=== PATIENT | female | born 1975 | race Caucasian/White ===

== ENCOUNTER 2018-06-29 16:02 | Emergency (ER) | payer SELFPAY ==
[2018-06-29 18:04] LABS: Urine Bacteria <20 /HPF (<20); Urine RBC 20-50 /HPF (NONE SEEN)
[2018-06-29 18:05] LABS: Urine Amorphous Sediment 1+ /HPF (NONE SEEN); Urine Culture Reflex Order NOT NEEDED
[2018-06-29 18:05] LABS: Urine Blood 2+ (NEG); Urine Glucose NEGATIVE (NEG); Urine Protein NEGATIVE (NEG); Urine Specific Gravity 1.015 (1.005-1.030); Urine pH 6.5 (5.0-7.0)
--- NOTE | 2018-06-29 18:37 | EDPHYS ---
Physician Documentation [facility] Name: Aurea Ba Age: 42 yrs Sex: Female : 1975 Arrival Date: 06/29/2018 Time: 16:06 Bed 11 Private MD: Jermain Sibley R ED Physician Matt Soto HPI: 06/29 17:10 This 42 yrs old Female presents to ER via Ambulatory with complaints of Flu snw Symptoms, Urinary Problem. 17:10 Onset: The symptoms/episode began/occurred 3 week(s) ago, and became persistent. snw Associated signs and symptoms: Pertinent positives: congestion, cough, earache, fever, nasal discharge, sore throat. Modifying factors: The patient symptoms are alleviated by nothing. It is unknown whether or not the patient has had similar symptoms in the past. The patient has not recently seen a physician, and does not have an established primary care provider. 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 - Social history:: Smoking status: Patient uses tobacco products, smokes one-half pack cigarettes per day. - Ebola Screening: : Patient denies exposure to infectious person Patient denies travel to an Ebola-affected area in the 21 days before illness onset. ROS: 17:09 Eyes: Negative for injury, pain, redness, and discharge, ENT: Negative for injury and snw discharge, + ear pain/congestion Neck: Negative for injury, pain, and swelling, Cardiovascular: Negative for chest pain, palpitations, and edema. 17:09 MS/Extremity: Negative for injury and deformity, Skin: Negative for injury, rash, and discoloration, Neuro: Negative for headache, weakness, numbness, tingling, and seizure. 17:09 Constitutional: Positive for fatigue, fever, malaise, poor PO intake, off and on over 2-3 weeks. 17:09 Respiratory: Positive for cough, with no reported sputum. 17:09 Abdomen/GI: Positive for abdominal cramps. 17:09 Back: Positive for pain with movement, of the low back area. 17:09 : Positive for urinary symptoms. Exam: 17:06 Head/Face: Normocephalic, atraumatic. Eyes: Pupils equal round and reactive to light, snw extra-ocular motions intact. Lids and lashes normal. Conjunctiva and sclera are non-icteric and not injected. Cornea within normal limits. Periorbital areas with no swelling, redness, or edema. ENT: Nares patent. No nasal discharge, no septal abnormalities noted. Tympanic membranes are normal and external auditory canals are clear. Oropharynx with no redness, swelling, or masses, exudates, or evidence of obstruction, uvula midline. Mucous membranes moist. Neck: Trachea midline, no thyromegaly or masses palpated, and no cervical lymphadenopathy. Supple, full range of motion without nuchal rigidity, or vertebral point tenderness. No Meningismus. Chest/axilla: Normal chest wall appearance and motion. Nontender with no deformity. No lesions are appreciated. 17:06 Respiratory: Lungs have equal breath sounds bilaterally, clear to auscultation and percussion. No rales, rhonchi or wheezes noted. No increased work of breathing, no retractions or nasal flaring. Abdomen/GI: Soft, non-tender, with normal bowel sounds. No distension or tympany. No guarding or rebound. No evidence of tenderness throughout. Back: No spinal tenderness. No costovertebral tenderness. Full range of motion. Skin: Warm, dry with normal turgor. Normal color with no rashes, no lesions, and no evidence of cellulitis. MS/ Extremity: Pulses equal, no cyanosis. Neurovascular intact. Full, normal range of motion. Neuro: Awake and alert, GCS 15, oriented to person, place, time, and situation. Cranial nerves II-XII grossly intact. Motor strength 5/5 in all extremities. Sensory grossly intact. Cerebellar exam normal. Normal gait. 17:06 Constitutional: The patient appears alert, awake, anxious, uncomfortable. 17:06 Cardiovascular: Rate: tachycardic, Heart sounds: normal. Vital Signs: 16:47 BP 119 / 87; Pulse 105; Resp 18; Temp 99.6; Pulse Ox 98% on R/A; Weight 76.2 kg; Height ph 5 ft. 2 in. (157.48 cm); 16:47 Body Mass Index 30.73 (76.20 kg, 157.48 cm) ph MDM: 16:52 Patient medically screened. snw 18:39 Data reviewed: vital signs, nurses notes. Data interpreted: Pulse oximetry: on room air snw is 98 %. Interpretation: normal. Counseling: I had a detailed discussion with the patient and/or guardian regarding: the historical points, exam findings, and any diagnostic results supporting the discharge/admit diagnosis, the presence of at least one elevated blood pressure reading (>120/80) during this emergency department visit, lab results, the need for outpatient follow up, to return to the emergency department if symptoms worsen or persist or if there are any questions or concerns that arise at home. Special discussion: Based on the patient's Hx, exam, and Dx evaluation, there is no indication for emergent surgery or inpatient Tx. It is understood by the patient/guardian that if the Sx's persist or worsen they need to return immediately for re-evaluation. Based on the history and exam findings, there is no indication for further emergent testing or inpatient evaluation. I discussed with the patient/guardian the need to see the primary care provider for further evaluation of the symptoms. 06/29 16:09 Order name: Urine Culture snw 06/29 16:09 Order name: Urine Microscopic Only snw 06/29 16:09 Order name: Flu snw 06/29 18:02 Order name: Urine Dipstick--Ancillary (enter results) em 06/29 18:02 Order name: Urine --Ancillary (enter results) [facility] 06/29 18:06 Order name: Urine Microscopic Only; Complete Time: 18:07 EDMS 06/29 16:09 Order name: Urine Dipstick-Ancillary (obtain specimen); Complete Time: 17:47 snw 06/29 18:06 Order name: Urine --Ancillary; Complete Time: 18:07 EDMS 06/29 18:06 Order name: Urine Dipstick-Ancillary; Complete Time: 18:07 EDMS 06/29 18:30 Order name: Influenza Screen (A ; Complete Time: 18:35 EDMS Administered Medications: 18:53 Drug: Augmentin 875 mg Route: PO; ss 18:55 Follow up: Response: Medication administered at discharge. Disposition: 06/29/18 18:36 Discharged to Home. Impression: Acute sinusitis. - Condition is Stable. - Discharge Instructions: Dysuria, Sinusitis, Adult. - Prescriptions for Augmentin 875- 125 mg Oral Tablet - take 1 tablet by ORAL route every 12 hours for 10 days; 20 tablet. Zyrtec 10 mg Oral Tablet - take 1 tablet by ORAL route once daily As needed; 20 tablet. - Work release form, Medication Reconciliation Form, Thank You Letter, Antibiotic Education, Prescription Opioid Use form. - Follow up: Jermain Sibley MD; When: 2 - 3 days; Reason: Recheck today's complaints, Continuance of care, Re-evaluation by your physician. Follow up: Emergency Department; When: As needed; Reason: Worsening of condition. Addendum: 07/01/2018 09:16 Co-signature as Attending Physician, Matt Soto MD I agree with the assessment and k dr plan of care. Signatures: Dispatcher [employer] EDMS Matt Soto MD MD [facility] Annetta Hodges, MANAGER TALENT-C MANAGER TALENT-Csnw June Guy RN RN ss Julianne Marsh RN RN ph Corrections: (The following items were deleted from the chart) 06/29 18:39 18:39 Medical screen evaluation completed. EMTALA emergency medical condition absent. snw snw 18:39 18:39 Medical screen evaluation completed. EMTALA emergency medical condition absent. snw snw 19:00 18:36 06/29/2018 18:36 Discharged to Home. Impression: Acute sinusitis. Condition is ss Stable. Forms are Medication Reconciliation Form, Thank You Letter, Antibiotic Education, Prescription Opioid Use. Follow up: Jermain Sibley; When: 2 - 3 days; Reason: Recheck today's complaints, Continuance of care, Re-evaluation by your physician. Follow up: Emergency Department; When: As needed; Reason: Worsening of condition. snw
--- NOTE | 2018-06-29 18:37 | ER ---
Nurse's Notes [facility] Name: Aurea Ba Age: 42 yrs Sex: Female : 1975 Arrival Date: 06/29/2018 Time: 16:06 Bed 11 Private MD: Jermain Sibley R Diagnosis: Acute sinusitis Presentation: 06/29 16:48 Presenting complaint: Patient states: Body aches, fever, cough, ear pain, joint pain, ph low back pain, urinary frequency x " a few days". Transition of care: patient was not received from another setting of care. Onset of symptoms was June 29, 2018. Risk Assessment: Do you want to hurt yourself or someone else? Patient reports no desire to harm self or others. Care prior to arrival: None. 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 - Social history:: Smoking status: Patient uses tobacco products, smokes one-half pack cigarettes per day. - Ebola Screening: : Patient denies exposure to infectious person Patient denies travel to an Ebola-affected area in the 21 days before illness onset. Screenin:50 Abuse screen: Denies threats or abuse. Denies injuries from another. Nutritional ss screening: No deficits noted. Tuberculosis screening: No symptoms or risk factors identified. Never had TB. Fall Risk None identified. Assessment: 18:00 General: Appears in no apparent distress. comfortable, Behavior is calm, cooperative. ss Pain: Complains of pain in low back area. Neuro: Level of Consciousness is awake, alert, obeys commands, Oriented to person, place, time, situation. Cardiovascular: Capillary refill < 3 seconds is brisk in bilateral fingers. Respiratory: Reports cough that is x " a few days" Respiratory effort is even, unlabored. GI: Patient currently denies diarrhea, nausea, vomiting. Derm: Skin is intact, is healthy with good turgor, Skin is pink, warm \\T\\ dry. normal. Vital Signs: 16:47 BP 119 / 87; Pulse 105; Resp 18; Temp 99.6; Pulse Ox 98% on R/A; Weight 76.2 kg; Height ph 5 ft. 2 in. (157.48 cm); 16:47 Body Mass Index 30.73 (76.20 kg, 157.48 cm) ED Course: 16:06 Patient arrived in ED. sb2 16:07 Jermain Sibley MD is Private Physician. sb2 16:08 [facility] Hod[facility] snw 16:08 Matt Soto MD is Attending Physician. snw 16:48 Arm band placed on. ph 16:49 Triage completed. ph 16:50 Patient has correct armband on for positive identification. Bed in low position. ss 17:47 Flu Sent. ss 18:36 Jermain Sibley MD is Referral Physician. snw 18:49 June Guy, HERBER is Primary Nurse. ss 18:59 No provider procedures requiring assistance completed. Patient did not have IV access ss during this emergency room visit. Administered Medications: 18:53 Drug: Augmentin 875 mg Route: PO; ss 18:55 Follow up: Response: Medication administered at discharge. ss Outcome: 18:36 Discharge ordered by . snw 18:59 Discharged to home ambulatory. ss 18:59 Condition: good 18:59 Discharge instructions given to patient, family, Instructed on discharge instructions, follow up and referral plans. medication usage, Demonstrated understanding of instructions, follow-up care, medications, Prescriptions given X 2. 19:00 Patient left the ED. ss Signatures: Annetta Hodges FNP-C SCREEN AND CYCLONE REPAIRER-Csnw June Guy, RN RN Julianne Marsh RN RN Lesia Nagy sb2
[2018-06-29] MEDS ORDERED: AMOX/K CLAV 875 MG TAB ONE (18:58)
== END 2018-06-29 19:00 | disposition home or self-care (01) ==
LOC: ER 16:02
DX: J01.90 Acute sinusitis, unspecified (principal); I10 Essential (primary) hypertension; F17.210 Nicotine dependence, cigarettes, uncomplicated; Z88.5 Allergy status to narcotic agent
CPT/HCPCS: 81003; 81015; 81025; 87086; 87088; 87804; 99283

== ENCOUNTER 2019-10-07 10:18 | Emergency (ER) | payer BC ==
[2019-10-07] MEDS ORDERED: METHYLPREDNISOLONE 125 MG INJ ONE (11:34)
[2019-10-07] MEDS ORDERED: AZITHROMYCIN 250 MG TAB ONE (11:34)
[2019-10-07 11:35] LABS: Protime INR 0.94
[2019-10-07] MEDS ORDERED: NA CHLORIDE 0.9% 1,000 ML ONE (11:35)
[2019-10-07] MEDS ORDERED: CEFTRIAXONE/SWI 1gm 1 GM/10 ML SYR ONE (11:35)
[2019-10-07] MEDS ORDERED: LEVALBUTEROL 1.25 MG/3 ML NEB ONE (11:35)
[2019-10-07] MEDS ORDERED: IPRATROPIUM BROM 0.5MG/2.5ML ONE (11:35)
[2019-10-07 11:36] LABS: Urine Blood 2+ (NEG); Urine Glucose NEGATIVE (NEG); Urine Protein NEGATIVE (NEG); Urine pH 6.5 (5.0-7.0)
[2019-10-07 11:44] LABS: Absolute Lymphocytes (CBC) 1.4 K/uL (0.7-4.9); Basophils % 0.8 % (0-1.3); Hematocrit 40.9 % (36.0-45.0); Lymphocytes % 20.3 % (15.3-44.8); MPV 8.4 fL (7.6-11.3); RBC Red Blood Cell Count 4.28 M/uL (3.86-4.86)
[2019-10-07 11:47] LABS: ALT/SGPT 16 U/L (12-78); AST/SGOT 15 U/L (15-37); Albumin 3.8 g/dL (3.4-5.0); Alkaline Phosphatase 73 U/L (45-117); BUN Blood Urea Nitrogen 10 mg/dL (7-18); Bicarbonate 28 mmol/L (21-32); Bilirubin Direct < 0.1 mg/dL (0-0.2); Bilirubin Total 0.2 mg/dL (0.2-1.0); Glucose Level 91 mg/dL (74-106); NT PRO-BNP 295 pg/mL (<125); Potassium 4.1 mmol/L (3.5-5.1); Protein, Total 7.5 g/dL (6.4-8.2); Sodium Level 138 mmol/L (136-145); Troponin (Emerg Dept Use Only) < 0.02 ng/mL (0.0-0.045)
--- NOTE | 2019-10-07 12:18 | RAD REPORT ---
EXAM DESCRIPTION: Farooq Martin (2 Views)10/07/2019 12:06 pm CLINICAL HISTORY: Cough COMPARISON: 2016 FINDINGS: The lungs appear clear of acute infiltrate. The heart is normal size IMPRESSION: No acute abnormalities displayed
--- NOTE | 2019-10-07 12:32 | ER ---
Nurse's Notes [facility] Name: Aurea Ba Age: 43 yrs Sex: Female : 1975 Arrival Date: 10/07/2019 Time: 10:30 Bed 7 Private MD: Diagnosis: Influenza due to identified novel influenza A virus;Tobacco abuse counseling;Tobacco use;Bronchitis, not specified as acute or chronic;Other chest pain Presentation: 10/06 10:36 Chief complaint: Patient states: cough, congestion and body aches that began 6 days ss ago. Denies fever. Coronavirus screen: The patient has NOT traveled to a country currently being monitored by the [facility] within the last 14 days. Proceed with normal triage procedures. Ebola Screen: Patient denies exposure to infectious person. Patient denies travel to an Ebola-affected area in the 21 days before illness onset. Initial Sepsis Screen: Does the patient meet any 2 criteria? No. Patient's initial sepsis screen is negative. Does the patient have a suspected source of infection? No. Patient's initial sepsis screen is negative. Risk Assessment: Do you want to hurt yourself or someone else? Patient reports no desire to harm self or others. 10:36 Method Of Arrival: Ambulatory ss 10:36 Acuity: ADA 4 ss Historical: - Allergies: 10:38 Morphine; ss - PMHx: 10:38 Anxiety; Depression; Hypertension; ss - PSHx: 10:38 R shoulder; ACL Right; ss - Immunization history:: Adult Immunizations up to date. - Social history:: Smoking status: Patient denies any tobacco usage or history of. - Family history:: not pertinent. Screenin:18 Abuse screen: Denies threats or abuse. Nutritional screening: No deficits noted. em Tuberculosis screening: No symptoms or risk factors identified. Fall Risk None identified. Assessment: 11:30 General: Appears in no apparent distress. comfortable, Behavior is calm, cooperative, em Denies fever. Pain: Complains of pain in chest Pain does not radiate. Quality of pain is described as tight Pain began 6 days ago. Neuro: Level of Consciousness is awake, alert, obeys commands, Oriented to person, place, time, situation, Appropriate for age. Cardiovascular: Capillary refill < 3 seconds Patient's skin is warm and dry. Rhythm is sinus rhythm. Respiratory: Airway is patent Respiratory effort is even, unlabored, Respiratory pattern is regular, symmetrical, Breath sounds are diminished bilaterally. GI: Reports nausea, Patient currently denies vomiting. Derm: Skin is intact, is healthy with good turgor, Skin is pink, warm \T\ dry. Musculoskeletal: Capillary refill < 3 seconds, Range of motion: intact in all extremities. 11:53 Reassessment: Patient appears in no apparent distress at this time. wheeled to x-ray em dept. 13:00 Reassessment: Patient appears in no apparent distress at this time. Patient and/or em family updated on plan of care and expected duration. Pain level reassessed. Patient is alert, oriented x 3, equal unlabored respirations, skin warm/dry/pink. pending completion of IV ABX before being discharged. 13:43 Reassessment: Patient appears in no apparent distress at this time. Patient and/or em family updated on plan of care and expected duration. Pain level reassessed. Patient is alert, oriented x 3, equal unlabored respirations, skin warm/dry/pink. crackers and juice given. 15:06 Reassessment: Patient appears in no apparent distress at this time. Patient and/or em family updated on plan of care and expected duration. Pain level reassessed. Patient is alert, oriented x 3, equal unlabored respirations, skin warm/dry/pink. Vital Signs: 10:36 BP 144 / 110; Pulse 83; Resp 16; Temp 97.8(TE); Pulse Ox 99% on R/A; Weight 76.2 kg; Height 5 ft. 2 in. (157.48 cm); Pain 2/10; 11:12 BP 137 / 94; Pulse 69; sv 12:28 BP 150 / 90; Pulse 78; Resp 20 S; Pulse Ox 99% on Nebulizer Mask; em 14:00 BP 140 / 79; Pulse 74; Resp 18 S; Pulse Ox 99% on R/A; em 10:36 Body Mass Index 30.73 (76.20 kg, 157.48 cm) ED Course: 10:30 Patient arrived in ED. rg4 10:31 Demian Hussein RN is Primary Nurse. em 10:32 Denilson Mahmood MD is Attending Physician. alfred 10:37 Triage completed. ss 10:38 Arm band placed on right wrist. ss 10:50 Initial lab(s) drawn, by me, sent to lab. First set of blood cultures drawn by me. ms Inserted saline lock: 20 gauge in right antecubital area, using aseptic technique. Blood collected. 11:25 Second set of blood cultures drawn by me. ms 11:30 Patient has correct armband on for positive identification. Placed in gown. Bed in low em position. Call light in reach. Side rails up X2. awake overnight monitor on. Pulse ox on. NIBP on. 11:30 Patient maintains SpO2 saturation greater than 95% on room air. em 12:05 Chest Pa And Lat (2 Views) XRAY In Process Unspecified. EDMS 15:06 No provider procedures requiring assistance completed. IV discontinued, intact, em bleeding controlled, No redness/swelling at site. Pressure dressing applied. Administered Medications: 11:34 Drug: Xopenex 3.75 mg Route: Inhalation; em 15:05 Follow up: Response: No adverse reaction; Marked relief of symptoms em 11:34 Drug: AtroVENT Aerosol 0.5 mg Route: Inhalation; em 15:05 Follow up: Response: No adverse reaction; Marked relief of symptoms em 11:35 Drug: NS 0.9% 1000 ml Route: IV; Rate: 1 bolus; Site: right antecubital; em 15:08 Follow up: IV Status: Completed infusion em 11:38 Drug: SOLU-Medrol 125 mg Route: IVP; Site: right antecubital; em 15:05 Follow up: Response: No adverse reaction em 12:28 Drug: Rocephin 1 grams Route: IV; Rate: per protocol; Site: right antecubital; em 15:05 Follow up: Response: No adverse reaction; IV Status: Completed infusion; IV Intake: 10mlem 13:18 Drug: Zithromax 500 mg Route: IVPB; Infused Over: 1 hrs; Site: right antecubital; sv 15:05 Follow up: IV Status: Completed infusion; IV Intake: 500ml em 14:55 Not Given (Patient Refused): Tamiflu 75 mg PO once em 14:55 Not Given (Patient Refused): predniSONE 20 mg PO once em 14:55 Not Given (Patient Refused): Aspirin 162 mg PO once em Intake: 15:05 IV: 500ml; Total: 500ml. em 15:05 IV: 10ml; Total: 510ml. em Outcome: 12:30 Discharge ordered by . alfred 15:06 Discharged to home ambulatory. em 15:06 Condition: good 15:06 Discharge instructions given to patient, Instructed on discharge instructions, follow up and referral plans. medication usage, Demonstrated understanding of instructions, follow-up care, medications, Prescriptions given X 4. 15:08 Patient left the ED. em Signatures: Dispatcher [employer] Peyton Broderick RN RN sv Anderson, Corey, MD MD cha Munoz, Edgar, RN RN em Villarreal, Maria ms Smirch, Shelby, RN RN ss Garcia, Rubi rg4
--- NOTE | 2019-10-07 12:33 | EDPHYS ---
Physician Documentation [facility] Name: Aurea Ba Age: 43 yrs Sex: Female : 1975 Arrival Date: 10/07/2019 Time: 10:30 Bed 7 Private MD: ROXANN Physician Denilson Mahmood HPI: 10/06 11:12 This 43 yrs old Female presents to ER via Ambulatory with complaints of Chest alfred Tightness, Cough. 11:12 The patient or guardian reports chest pain that is located primarily in the anterior [facility] chest wall. Onset: 6 day(s) ago. The pain does not radiate. 11:22 Onset: The symptoms/episode began/occurred 6 day(s) ago. Duration: The symptoms are alfred continuous, and are steadily getting worse. The patient's shortness of breath is aggravated by coughing, talking, walking. The patient or guardian reports difficulty breathing, flu symptoms, arthralgias, low-grade fever, myalgias. Modifying factors: The symptoms are alleviated by nothing. the symptoms are aggravated by activity. Historical: - Allergies: 10:38 Morphine; ss - PMHx: 10:38 Anxiety; Depression; Hypertension; ss - PSHx: 10:38 R shoulder; ACL Right; ss - Immunization history:: Adult Immunizations up to date. - Social history:: Smoking status: Patient denies any tobacco usage or history of. - Family history:: not pertinent. ROS: 11:22 Constitutional: Negative for fever, chills, and weight loss, Eyes: Negative for injury, alfred pain, redness, and discharge, ENT: Negative for injury, pain, and discharge, Neck: Negative for injury, pain, and swelling, Cardiovascular: Negative for chest pain, palpitations, and edema, Abdomen/GI: Negative for abdominal pain, nausea, vomiting, diarrhea, and constipation, Back: Negative for injury and pain, : Negative for injury, bleeding, discharge, and swelling, MS/Extremity: Negative for injury and deformity, Skin: Negative for injury, rash, and discoloration, Neuro: Negative for headache, weakness, numbness, tingling, and seizure. 11:22 Respiratory: Positive for cough, shortness of breath, wheezing, expiratory. Exam: 11:22 Constitutional: This is a well developed, well nourished patient who is awake, alert, alfred and in no acute distress. Head/Face: Normocephalic, atraumatic. Eyes: Pupils equal round and reactive to light, extra-ocular motions intact. Lids and lashes normal. Conjunctiva and sclera are non-icteric and not injected. Cornea within normal limits. Periorbital areas with no swelling, redness, or edema. ENT: Nares patent. No nasal discharge, no septal abnormalities noted. Tympanic membranes are normal and external auditory canals are clear. Oropharynx with no redness, swelling, or masses, exudates, or evidence of obstruction, uvula midline. Mucous membranes moist. Neck: Trachea midline, no thyromegaly or masses palpated, and no cervical lymphadenopathy. Supple, full range of motion without nuchal rigidity, or vertebral point tenderness. No Meningismus. Chest/axilla: Normal chest wall appearance and motion. Nontender with no deformity. No lesions are appreciated. Cardiovascular: Regular rate and rhythm with a normal S1 and S2. No gallops, murmurs, or rubs. Normal PMI, no JVD. No pulse deficits. Abdomen/GI: Soft, non-tender, with normal bowel sounds. No distension or tympany. No guarding or rebound. No evidence of tenderness throughout. Back: No spinal tenderness. No costovertebral tenderness. Full range of motion. Skin: Warm, dry with normal turgor. Normal color with no rashes, no lesions, and no evidence of cellulitis. MS/ Extremity: Pulses equal, no cyanosis. Neurovascular intact. Full, normal range of motion. Neuro: Awake and alert, GCS 15, oriented to person, place, time, and situation. Cranial nerves II-XII grossly intact. Motor strength 5/5 in all extremities. Sensory grossly intact. Cerebellar exam normal. Normal gait. Psych: Awake, alert, with orientation to person, place and time. Behavior, mood, and affect are within normal limits. 11:22 Respiratory: the patient does not display signs of respiratory distress, Breath sounds: bronchial sounds, that are severe, decreased breath sounds, that are mild, rhonchi, that are moderate, stridor, is not appreciated, + upper airway congestion. wheezing: expiratory that is mild, is scattered. Vital Signs: 10:36 BP 144 / 110; Pulse 83; Resp 16; Temp 97.8(TE); Pulse Ox 99% on R/A; Weight 76.2 kg; ss Height 5 ft. 2 in. (157.48 cm); Pain 2/10; 11:12 BP 137 / 94; Pulse 69; sv 12:28 BP 150 / 90; Pulse 78; Resp 20 S; Pulse Ox 99% on Nebulizer Mask; em 14:00 BP 140 / 79; Pulse 74; Resp 18 S; Pulse Ox 99% on R/A; em 10:36 Body Mass Index 30.73 (76.20 kg, 157.48 cm) ss MDM: 10:32 Patient medically screened. [facility] 12:29 Data reviewed: vital signs, nurses notes, lab test result(s), EKG, radiologic studies, alfred plain films. 10/06 11:11 Order name: Basic Metabolic Panel; Complete Time: 12:26 [facility] 10/06 11:11 Order name: CBC with Diff; Complete Time: 12:26 [facility] 10/06 11:11 Order name: LFT's; Complete Time: 12:26 [facility] 10/06 11:11 Order name: Magnesium; Complete Time: 12:26 [facility] 10/06 11:11 Order name: NT PRO-BNP; Complete Time: 12:26 [facility] 10/06 11:11 Order name: PT-INR; Complete Time: 12:26 [facility] 10/06 11:11 Order name: Troponin (emerg Dept Use Only); Complete Time: 12:26 [facility] 10/06 11:11 Order name: Blood Culture Adult (2) [facility] 10/06 11:11 Order name: Procalcitonin; Complete Time: 12:26 [facility] 10/06 11:11 Order name: Lactate; Complete Time: 12:26 [facility] 10/06 11:11 Order name: Chest Pa And Lat (2 Views) XRAY [facility] 10/06 11:11 Order name: Influenza Screen (a \T\ B); Complete Time: 12:26 alfred 10/06 11:12 Order name: Urine Dipstick--Ancillary (enter results); Complete Time: 12:26 bd 10/06 11:12 Order name: Urine --Ancillary (enter results); Complete Time: 12:26 10/06 11:11 Order name: EKG; Complete Time: 11:12 [facility] 10/06 11:11 Order name: Cardiac monitoring; Complete Time: 11:29 [facility] 10/06 11:11 Order name: EKG - Nurse/Tech; Complete Time: 11:29 [facility] 10/06 11:11 Order name: IV Saline Lock; Complete Time: 11:30 [facility] 10/06 11:11 Order name: Labs collected and sent; Complete Time: :30 [facility] 10/06 11:11 Order name: O2 Per Protocol; Complete Time: 11:30 [facility] 10/06 11:11 Order name: O2 Sat Monitoring; Complete Time: 11:30 [facility] Administered Medications: 11:34 Drug: Xopenex 3.75 mg Route: Inhalation; em 15:05 Follow up: Response: No adverse reaction; Marked relief of symptoms em 11:34 Drug: AtroVENT Aerosol 0.5 mg Route: Inhalation; em 15:05 Follow up: Response: No adverse reaction; Marked relief of symptoms em 11:35 Drug: NS 0.9% 1000 ml Route: IV; Rate: 1 bolus; Site: right antecubital; em 15:08 Follow up: IV Status: Completed infusion em 11:38 Drug: SOLU-Medrol 125 mg Route: IVP; Site: right antecubital; em 15:05 Follow up: Response: No adverse reaction em 12:28 Drug: Rocephin 1 grams Route: IV; Rate: per protocol; Site: right antecubital; em 15:05 Follow up: Response: No adverse reaction; IV Status: Completed infusion; IV Intake: 10mlem 13:18 Drug: Zithromax 500 mg Route: IVPB; Infused Over: 1 hrs; Site: right antecubital; sv 15:05 Follow up: IV Status: Completed infusion; IV Intake: 500ml em 14:55 Not Given (Patient Refused): Tamiflu 75 mg PO once em 14:55 Not Given (Patient Refused): predniSONE 20 mg PO once em 14:55 Not Given (Patient Refused): Aspirin 162 mg PO once em Disposition: 10/07/19 12:30 Discharged to Home. Impression: Influenza due to identified novel influenza A virus, Tobacco abuse counseling, Tobacco use, Bronchitis, not specified as acute or chronic, Other chest pain. - Condition is Stable. - Discharge Instructions: Acute Bronchitis, Adult, Nonspecific Chest Pain, Influenza, Adult, How to Use an Inhaler, Upper Respiratory Infection, Adult, Nonspecific Chest Pain, Defp-mp-[id number], Influenza, Adult, Lywh-zt-Ckxc, Aspirin and Your Heart, Cough, Adult. - Prescriptions for Medrol (Froylan) 4 mg Oral Tablets, Dose Pack - take 1 tablet by ORAL route as directed - follow package instructions; 1 packet. Albuterol Sulfate 90 mcg/actuation - inhale 1-2 puff by INHALATION route every 4-6 hours; 1 Inhaler. Tamiflu 75 mg Oral Capsule - take 1 tablet by ORAL route every 12 hours for 5 days; 10 tablet. Zithromax 500 mg Oral Tablet - take 1 tablet by ORAL route once daily for 4 days; 4 tablet. - Work release form, Medication Reconciliation Form, Thank You Letter, Antibiotic Education, Prescription Opioid Use form. - Follow up: Private Physician; When: 2 - 3 days; Reason: Recheck today's complaints, Continuance of care, Re-evaluation by your physician. - Problem is new. - Symptoms have improved. Signatures: Dispatcher [employer] Peyton Broderick RN RN sv Anderson, Corey, MD MD cha Munoz, Edgar, RN RN em Smirch, Shelby, RN RN ss Corrections: (The following items were deleted from the chart) 15:08 12:30 10/07/2019 12:30 Discharged to Home. Impression: Influenza due to identified em novel influenza A virus; Tobacco abuse counseling; Tobacco use; Bronchitis, not specified as acute or chronic; Other chest pain. Condition is Stable. Forms are Medication Reconciliation Form, Thank You Letter, Antibiotic Education, Prescription Opioid Use. Follow up: Private Physician; When: 2 - 3 days; Reason: Recheck today's complaints, Continuance of care, Re-evaluation by your physician. Problem is new. Symptoms have improved. alfred
[2019-10-07] MEDS ORDERED: OSELTAMIVIR 75 MG CAP ONE (12:42)
[2019-10-07] MEDS ORDERED: ASPIRIN 81 MG CHEWABLE TABLET ONE (12:42)
[2019-10-07] MEDS ORDERED: predniSONE 20 MG TAB ONE (12:42)
[2019-10-07] MEDS ORDERED: AZITHROMYCIN IV 500 MG in NA CHLORIDE 0.9% 250 ML IVPB ONE (13:00)
[2019-10-07 15:22] VITALS: O2SAT 99
[2019-10-07 15:24] VITALS: BP 140/79
[2019-10-07 15:40] VITALS: TEMP 97.8
--- NOTE | 2019-10-08 08:55 | EKG ---
Test Date: 2019-10-07 Test Time: 10:37:46 Ham Stripper: KELLY MEASUREMENT RESULTS: Intervals: Rate: 65 AR: 112 QRSD: 92 QT: 376 QTc: 391 [place]: P: 30 AR: 112 QRS: 9 T: 8 INTERPRETIVE STATEMENTS: Normal sinus rhythm Normal ECG Compared to ECG 05/26/2016 09:28:37 Short AR interval no longer present Left ventricular hypertrophy no longer present Electronically Signed On 10-08-19 08:53:05 CDT by Ancelmo Hill
== END 2019-10-07 15:08 | disposition home or self-care (01) ==
LOC: ER 10:18
DX: J09.X9 Influenza due to identified novel influenza A virus with other manifestations (principal); J40 Bronchitis, not specified as acute or chronic; R07.89 Other chest pain; Z72.0 Tobacco use; Z71.6 Tobacco abuse counseling; Z88.6 Allergy status to analgesic agent
CPT/HCPCS: 96365; 96361; 96368; 93005; 87040 ×2; 85025; 80048; 36415; 83735; 81025; 85610; 80076; 83605; 81003; 84484; 84145; 83880; 87804 ×2; 71046; 96375; 99285; 96366; J0456; J0696; J7030 ×2; J2930; J7512

== ENCOUNTER 2020-12-16 09:02 | Emergency (ER) | payer BC ==
[2020-12-16 10:41] LABS: Protime INR 0.95
[2020-12-16 10:43] LABS: Basophils % 0.8 % (0-1.3); Hematocrit 37.1 % (36.0-45.0); Lymphocytes % 24.2 % (15.3-44.8); MPV 8.4 fL (7.6-11.3); RBC Red Blood Cell Count 4.22 M/uL (3.86-4.86)
[2020-12-16 10:50] LABS: ALT/SGPT 21 U/L (12-78); AST/SGOT 13 U/L (15-37); Alkaline Phosphatase 101 U/L (45-117); BUN Blood Urea Nitrogen 14 mg/dL (7-18); Bicarbonate 27 mmol/L (21-32); Bilirubin Direct < 0.1 mg/dL (0-0.2); Bilirubin Total 0.3 mg/dL (0.2-1.0); Glucose Level 89 mg/dL (74-106); Magnesium 2.1 mg/dL (1.8-2.4); NT PRO-BNP 97 pg/mL (<125); Potassium 3.3 mmol/L (3.5-5.1); Protein, Total 7.7 g/dL (6.4-8.2); Sodium Level 139 mmol/L (136-145); Troponin (Emerg Dept Use Only) < 0.02 ng/mL (0.0-0.045)
[2020-12-16 10:54] LABS: Urine Blood 2+ (Negative); Urine Glucose Negative (Negative); Urine Protein Negative (Negative); Urine Specific Gravity 1.015 (1.005-1.030); Urine pH 5.5 (5.0-7.0)
--- NOTE | 2020-12-16 11:26 | RAD REPORT ---
EXAM DESCRIPTION: CT - Head Brain Wo Cont - 12/16/2020 11:00 am CLINICAL HISTORY: DIZZINESS COMPARISON: No comparisons TECHNIQUE: Axial 5 mm thick images of the head were obtained without IV contrast. All CT scans are performed using dose optimization technique as appropriate and may include automated exposure control or mA/KV adjustment according to patient size. FINDINGS: No intracranial hemorrhage, mass, edema or shift of mid-line structures. No acute infarcti on changes seen. No abnormal extra-axial fluid collections. Ventricles are normal. Mastoid air cells and visualized portions of the paranasal sinuses are clear. No acute bony findings. IMPRESSION: Negative non-contrast CT head examination.
[2020-12-16 11:37] LABS: Urine Specific Gravity/Preg 1.015 (1.005-1.030)
--- NOTE | 2020-12-16 12:05 | RAD REPORT ---
EXAM DESCRIPTION: RAD - Chest Single View - 12/16/2020 10:08 am CLINICAL HISTORY: SOB COMPARISON: Two view chest October 07, 2019 TECHNIQUE: AP portable chest image was obtained 12/16/2020 10:08 am . FINDINGS: Lungs are clear. Heart and vasculature are normal. No measurable pleural effusion and no p neumothorax. No acute bony abnormality seen. No acute aortic findings suspected. IMPRESSION: No acute cardiopulmonary process. No significant change from comparison study.
--- NOTE | 2020-12-16 12:16 | ER ---
Nurse's Notes [facility] Name: Aurea Ba Age: 45 yrs Sex: Female : 1975 Arrival Date: 12/16/2020 Time: 09:10 Bed 5 Private MD: Dagoberto Burks V Diagnosis: Dizziness and giddiness;Other fatigue Presentation: 12/16 09:25 Chief complaint: Patient states: dizziness and achy legs that began 2 weeks ago. aa5 09:25 Coronavirus screen: Client denies travel out of the [place] in the last 14 days. Ebola aa5 Screen: Patient negative for fever greater than or equal to 101.5 degrees Fahrenheit, and additional compatible Ebola Virus Disease symptoms. Initial Sepsis Screen: Does the patient meet any 2 criteria? No. Patient's initial sepsis screen is negative. Does the patient have a suspected source of infection? No. Patient's initial sepsis screen is negative. Risk Assessment: Do you want to hurt yourself or someone else? Patient reports no desire to harm self or others. Onset of symptoms was November 2020. 09:25 Acuity: ADA 3 aa5 09:25 Method Of Arrival: Ambulatory aa5 Triage Assessment: 10:37 Respiratory: Reports shortness of breath on exertion Onset: The symptoms/episode jd3 began/occurred gradually, the patient has mild shortness of breath. 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 - Social history:: Smoking status: Patient reports the use of cigarette tobacco products, smokes one-half pack cigarettes per day. Screenin:41 Abuse screen: Denies threats or abuse. Nutritional screening: No deficits noted. tw2 Tuberculosis screening: No symptoms or risk factors identified. Fall Risk None identified. Assessment: 10:35 General: Appears in no apparent distress. comfortable, Behavior is calm, cooperative, jd3 appropriate for age. Pain: Complains of pain in chest Quality of pain is described as aching, pressure. Neuro: Level of Consciousness is awake, alert, obeys commands, Oriented to person, place, time, situation. Cardiovascular: Capillary refill < 3 seconds Patient's skin is warm and dry. Rhythm is regular. Respiratory: Reports shortness of breath on exertion Airway is patent Respiratory effort is even, unlabored, Respiratory pattern is regular, symmetrical. GI: No signs and/or symptoms were reported involving the gastrointestinal system. : No signs and/or symptoms were reported regarding the genitourinary system. EENT: No signs and/or symptoms were reported regarding the EENT system. Derm: Skin is intact, Skin is dry, Skin is normal, Skin temperature is warm. Musculoskeletal: Circulation, motion, and sensation intact. Range of motion:. 11:30 Reassessment: Patient appears in no apparent distress at this time. No changes from jd3 previously documented assessment. Patient and/or family updated on plan of care and expected duration. Pain level reassessed. Patient is alert, oriented x 3, equal unlabored respirations, skin warm/dry/pink. 12:30 Reassessment: Patient appears in no apparent distress at this time. Patient and/or jd3 family updated on plan of care and expected duration. Pain level reassessed. Patient is alert, oriented x 3, equal unlabored respirations, skin warm/dry/pink. Patient states feeling better. Vital Signs: 09:25 BP 169 / 92; Pulse 67; Resp 20 S; Temp 98.3(O); Pulse Ox 100% on R/A; Weight 88 kg (R); aa5 Height 5 ft. 2 in. (157.48 cm) (R); Pain 3/10; 10:38 Pulse 69; Resp 17 S; Pulse Ox 100% on R/A; jd3 11:49 BP 141 / 99; Pulse 62; Resp 16 S; Pulse Ox 100% on R/A; jd3 09:25 Body Mass Index 35.48 (88.00 kg, 157.48 cm) aa5 ED Course: 09:10 Patient arrived in ED. am2 09:10 Dagoberto Burks MD is Private Physician. am2 09:25 Arm band placed on Patient placed in an exam room, on a stretcher. aa5 09:26 Bed in low position. Call light in reach. tw2 09:31 Denilson Tsang PA is PHCP. cp 09:31 Denilson Mahmood MD is Attending Physician. cp 09:36 Triage completed. aa5 09:41 Amarilis Alejo, RN is Primary Nurse. tw2 10:34 Primary Nurse role handed off by Amarilis Alejo RN jd3 10:34 Tony Hare RN is Primary Nurse. jd3 10:35 Inserted saline lock: 22 gauge in right antecubital area, using aseptic technique. jd3 Blood collected. 12:30 No provider procedures requiring assistance completed. IV discontinued, intact, jd3 bleeding controlled, No redness/swelling at site. Pressure dressing applied. Administered Medications: 12:10 Drug: Potassium Effervescent Tablet 50 mEq Route: PO; jd3 12:10 Drug: Meclizine 25 mg Route: PO; jd3 Outcome: 12:16 Discharge ordered by MD. cp 12:30 Discharged to home ambulatory, with family. jd3 12:30 Condition: stable 12:30 Discharge instructions given to patient, Instructed on discharge instructions, follow up and referral plans. Demonstrated understanding of instructions, follow-up care. 12:42 Instructed on medication usage, Prescriptions given X 1. jd3 12:42 Patient left the ED. jd3 Signatures: Sandra Bey, RN RN aa5 Denilson Tsang PA PA cp Amarilis Alejo, RN RN tw2 Salome Shaw am2 Tony Hare RN RN jd3 Corrections: (The following items were deleted from the chart) 10:37 10:35 Respiratory: Airway is patent Respiratory effort is even, unlabored, Respiratory jd3 pattern is regular, symmetrical, Denies cough, shortness of breath jd3 11:51 11:49 Pulse 62bpm; Resp 16bpm; Spontaneous; Pulse Ox 100% RA; jd3 jd3 12:42 12:30 Discharged to home ambulatory, with family, jd3 jd3
--- NOTE | 2020-12-16 12:16 | EDPHYS ---
Physician Documentation [facility] Name: Aurea Ba Age: 45 yrs Sex: Female : 1975 Arrival Date: 12/16/2020 Time: 09:10 Bed 5 Private MD: Dagoberto Burks V ED Physician Denilson Mahmood HPI: 12/16 09:55 This 45 yrs old Female presents to ER via Ambulatory with complaints of cp Dizziness, Shortness Of Breath. 09:55 The patient presents with dizziness, lightheadedness. Onset: The symptoms/episode cp began/occurred 2 week(s) ago. Context: just prior to the episode the patient experienced no apparent symptoms. 09:55 Associated signs and symptoms: Pertinent positives: fatigue, general pain of legs, cp Pertinent negatives: abdominal pain, chest pain, focal weakness, near-syncope, shortness of breath, syncope. 09:55 Patient's baseline: Neuro: alert and fully oriented, Motor: no deficits, Ambulation: cp walks without assistance, Speech: normal. 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 - Social history:: Smoking status: Patient reports the use of cigarette tobacco products, smokes one-half pack cigarettes per day. ROS: 10:00 Constitutional: Positive for fatigue, Negative for body aches, chills, poor PO intake. cp 10:00 Eyes: Negative for injury, pain, redness, and discharge. cp 10:00 Cardiovascular: Negative for chest pain, edema, palpitations. 10:00 Respiratory: Negative for cough, shortness of breath, wheezing. Exam: 10:05 Constitutional: The patient appears in no acute distress, alert, awake, comfortable, cp non-diaphoretic, well developed, well nourished. 10:05 Head/Face: Normocephalic, atraumatic. cp 10:05 Eyes: Periorbital structures: appear normal, Pupils: equal, round, and reactive to light and accomodation, Extraocular movements: intact throughout, Conjunctiva: normal, no exudate, no injection, Sclera: no appreciated abnormality, Lids and lashes: appear normal, bilaterally. 10:05 ENT: External ear(s): are unremarkable, Nose: is normal, Mouth: Lips: moist, Oral mucosa: moist, Posterior pharynx: Airway: no evidence of obstruction, patent. 10:05 Chest/axilla: Inspection: normal, Palpation: is normal, no crepitus, no tenderness. 10:05 Cardiovascular: Rate: normal, Rhythm: regular, Heart sounds: murmur, not appreciated, Edema: is not appreciated, JVD: is not appreciated. 10:05 Respiratory: the patient does not display signs of respiratory distress, Respirations: normal, no use of accessory muscles, no retractions, labored breathing, is not present, Breath sounds: are clear throughout, no decreased breath sounds. 10:05 Abdomen/GI: Inspection: abdomen appears normal, Palpation: abdomen is soft and non-tender, in all quadrants. 10:05 Back: pain, is absent, ROM is normal. 10:05 Neuro: Orientation: to person, place \T\ time. Mentation: is normal, Cerebellar function: is grossly normal, Motor: moves all fours, strength is normal, Sensation: is normal, Gait: is steady, at a normal pace, without difficulty. 10:26 ECG was reviewed by the Attending Physician. cp Vital Signs: 09:25 BP 169 / 92; Pulse 67; Resp 20 S; Temp 98.3(O); Pulse Ox 100% on R/A; Weight 88 kg (R); aa5 Height 5 ft. 2 in. (157.48 cm) (R); Pain 3/10; 10:38 Pulse 69; Resp 17 S; Pulse Ox 100% on R/A; jd3 11:49 BP 141 / 99; Pulse 62; Resp 16 S; Pulse Ox 100% on R/A; jd3 09:25 Body Mass Index 35.48 (88.00 kg, 157.48 cm) aa5 MDM: 09:36 Patient medically screened. cp 12:15 Data reviewed: vital signs, nurses notes, lab test result(s), EKG, radiologic studies, cp CT scan, plain films. 12:15 Differential diagnosis: cardiac arrhythmia, GI bleed, hypovolemia, idiopathic cp dizziness, vertigo. Test interpretation: by ED physician or midlevel provider: ECG, plain radiologic studies. 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 12/16 09:54 Order name: Basic Metabolic Panel 12/16 09:54 Order name: CBC with Diff 12/16 09:54 Order name: LFT's 12/16 09:54 Order name: Magnesium 12/16 09:54 Order name: NT PRO-BNP 12/16 09:54 Order name: PT-INR 12/16 09:54 Order name: Troponin (emerg Dept Use Only) 12/16 10:42 Order name: Protime (+INR); Complete Time: 10:50 EDMS 12/16 10:45 Order name: CBC with Automated Diff; Complete Time: 10:50 EDMS 12/16 10:50 Interpretation: Normal except: MCV 88.0. 12/16 10:50 Order name: Basic Metabolic Panel; Complete Time: 10:51 EDMS 12/16 10:51 Interpretation: Normal except: K 3.3; GFR 65. 12/16 10:50 Order name: Liver (Hepatic) Function; Complete Time: 10:51 EDMS 12/16 10:51 Interpretation: Normal except: AST 13; GLOB 3.7. 12/16 10:50 Order name: Troponin (Emerg Dept Use Only); Complete Time: 10:51 EDMS 12/16 10:50 Order name: NT PRO-BNP; Complete Time: 10:51 EDMS 12/16 10:50 Order name: Magnesium; Complete Time: 10:51 EDMS 12/16 09:54 Order name: XRAY Chest (1 view) 12/16 09:54 Order name: EKG; Complete Time: 09:54 12/16 09:54 Order name: Cardiac monitoring; Complete Time: 10:35 12/16 09:54 Order name: EKG - Nurse/Tech; Complete Time: 10:35 12/16 09:54 Order name: IV Saline Lock; Complete Time: 10:35 12/16 09:54 Order name: Labs collected and sent; Complete Time: 10:35 12/16 09:54 Order name: O2 Per Protocol; Complete Time: 10:35 cp 12/16 09:54 Order name: O2 Sat Monitoring; Complete Time: 10:35 cp 12/16 10:52 Order name: CT Head Brain wo Cont 12/16 10:54 Order name: Urine Dipstick-Ancillary; Complete Time: 11:52 EDMS 12/16 11:52 Interpretation: Normal except: UBLD 2+. 12/16 11:01 Order name: Urine --Ancillary (enter results) bd 12/16 11:26 Order name: CT; Complete Time: 11:52 EDMS 12/16 11:52 Interpretation: Report reviewed. 12/16 11:37 Order name: Urine --Ancillary; Complete Time: 11:52 EDMS 12/16 12:06 Order name: RAD; Complete Time: 12:09 EDTX 12/16 09:54 Order name: Urine Test (obtain specimen); Complete Time: 10:55 cp 12/16 09:54 Order name: Urine Dipstick-Ancillary (obtain specimen); Complete Time: 10:55 cp EC:26 Rate is 67 beats/min. Rhythm is regular. AR interval is normal. QRS interval is normal. cp QT interval is normal. T waves are Inverted in lead III. Interpreted by me. Reviewed by me. Administered Medications: 12:10 Drug: Potassium Effervescent Tablet 50 mEq Route: PO; jd3 12:10 Drug: Meclizine 25 mg Route: PO; jd3 Disposition: 16:49 Co-signature as Attending Physician, Denilson Mahmood MD I agree with the assessment and alfred plan of care. Disposition: 12/16/20 12:16 Discharged to Home. Impression: Dizziness and giddiness, Other fatigue. - Condition is Stable. - Discharge Instructions: Dizziness, Fatigue, Hypokalemia. - Prescriptions for Meclizine 25 mg Oral Tablet - take 1 tablet by ORAL route every 8 hours As needed; 30 tablet. - Medication Reconciliation Form, Thank You Letter, Antibiotic Education, Prescription Opioid Use form. - Follow up: Private Physician; When: 2 - 3 days; Reason: Recheck today's complaints. - Problem is new. - Symptoms have improved. Signatures: Dispatcher [employer] EDDenilson Calhoun MD MD cha Calderon, Audri, RN RN aa5 Denilson Tsang PA PA cp Davies, Jonathon, RN RN jd3 Corrections: (The following items were deleted from the chart) 12:17 12:16 12/16/2020 12:16 Discharged to Home. Impression: Dizziness and giddiness. cp Condition is Stable. Forms are Medication Reconciliation Form, Thank You Letter, Antibiotic Education, Prescription Opioid Use. Follow up: Private Physician; When: 2 - 3 days; Reason: Recheck today's complaints. Problem is new. Symptoms have improved. cp 12:42 12:17 12/16/2020 12:16 Discharged to Home. Impression: Dizziness and giddiness; Other jd3 fatigue. Condition is Stable. Discharge Instructions: Dizziness, Fatigue, Hypokalemia. Prescriptions for Meclizine 25 mg Oral Tablet - take 1 tablet by ORAL route every 8 hours As needed; 30 tablet. and Forms are Medication Reconciliation Form, Thank You Letter, Antibiotic Education, Prescription Opioid Use. Follow up: Private Physician; When: 2 - 3 days; Reason: Recheck today's complaints. Problem is new. Symptoms have improved. cp
[2020-12-16] MEDS ORDERED: MECLIZINE HCL 12.5 MG TAB ONE (12:22)
[2020-12-16] MEDS ORDERED: POTASSIUM 25 MEQ EFFERV TAB ONE (12:22)
[2020-12-16 12:54] VITALS: TEMP 98.3; O2SAT 100
[2020-12-16 13:08] VITALS: BP 141/99
== END 2020-12-16 12:42 | disposition home or self-care (01) ==
LOC: ER 09:02
DX: R53.83 Other fatigue (principal); F17.210 Nicotine dependence, cigarettes, uncomplicated; I10 Essential (primary) hypertension; F41.8 Other specified anxiety disorders; Z88.5 Allergy status to narcotic agent
CPT/HCPCS: 36415; 70450; 71045; 80048; 80076; 81003; 81025; 83735; 83880; 84484; 85025; 85610; 93005; 99284

== ENCOUNTER 2021-01-21 09:23 | Emergency (ER) | payer BC ==
--- NOTE | 2021-01-21 10:53 | RAD REPORT ---
EXAM DESCRIPTION: RAD - Foot Right 3 View - 01/21/2021 10:35 am CLINICAL HISTORY: foot pain Pain and swelling COMPARISON: Foot Right Wo Cont dated 03/08/2016; Foot Right 3 View dated 07/05/2015 FINDINGS: Tiny calcaneal spur of plantar aspect. No bone or joint abnormality is otherwise seen.
--- NOTE | 2021-01-21 11:20 | ER ---
Nurse's Notes [facility] Name: Aurea Ba Age: 45 yrs Sex: Female : 1975 Arrival Date: 01/21/2021 Time: 09:26 Bed 18 Private MD: Dagoberto Burks V Diagnosis: Pain in right foot Presentation: 01/21 09:44 Chief complaint: Patient states: "I am having some right sided foot pain on the outer jd3 portion of my foot. I don't know if it related to the older fracture or if it arteritis or something.". Coronavirus screen: At this time, the client does not indicate any symptoms associated with coronavirus-19. Ebola Screen: Patient negative for fever greater than or equal to 101.5 degrees Fahrenheit, and additional compatible Ebola Virus Disease symptoms. Initial Sepsis Screen: Does the patient meet any 2 criteria? No. Patient's initial sepsis screen is negative. Does the patient have a suspected source of infection? No. Patient's initial sepsis screen is negative. Risk Assessment: Do you want to hurt yourself or someone else? Patient reports no desire to harm self or others. Onset of symptoms was January 20, 2021. 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 - Social history:: Smoking status: Patient reports the use of cigarette tobacco products, smokes one pack cigarettes per day. Screenin:02 Abuse screen: Denies threats or abuse. Denies injuries from another. Nutritional kg screening: No deficits noted. Tuberculosis screening: No symptoms or risk factors identified. Fall Risk No fall in past 12 months (0 pts). No secondary diagnosis (0 pts). No IV (0 pts). Ambulatory Aid- Crutches/Cane/Walker (15 pts). Gait- Impaired (20 pts.). Mental Status- Oriented to own ability (0 pts). Total Obrien Fall Scale indicates No Risk (0-24 pts). Assessment: 09:57 General: Appears in no apparent distress. Behavior is calm, cooperative, appropriate kg for age, quiet. Pain: Complains of pain in Side of Right foot and right heel Pain radiates to right foot Pain currently is 7 out of 10 on a pain scale. at worst was 9 out of 10 on a pain scale. level that patient reports is acceptable is 3 out of 10 on a pain scale. Quality of pain is described as dull, sharp, Pain began Is continuous, Alleviated by rest, Aggravated by increased activity. Neuro: No deficits noted. Cardiovascular: No deficits noted. Respiratory: No deficits noted. GI: No deficits noted. : No deficits noted. EENT: No deficits noted. Derm: No deficits noted. Musculoskeletal: Reports pain in right foot since Several month and continued to get work. . Vital Signs: 09:47 BP 146 / 89; Pulse 57; Resp 16 S; Temp 97.6(TE); Pulse Ox 95% on R/A; Weight 88.9 kg jd3 (R); Height 5 ft. 2 in. (157.48 cm) (R); Pain 8/10; 10:00 BP 138 / 96; Pulse 70; Resp 20; Pulse Ox 100% on R/A; kg 10:30 BP 131 / 109; Pulse 70; Resp 18; Pulse Ox 100% on R/A; kg 10:45 BP 123 / 77; Pulse 59; Resp 18; Pulse Ox 100% ; kg 11:00 BP 123 / 77; Pulse 59; Resp 20; Pulse Ox 100% on R/A; kg 11:38 BP 122 / 79; Pulse 61; Resp 20; Pulse Ox 100% on R/A; kg 09:47 Body Mass Index 35.85 (88.90 kg, 157.48 cm) jd3 ED Course: 09:26 Patient arrived in ED. mr 09:26 Dagoberto Burks MD is Private Physician. mr 09:45 Triage completed. jd3 09:48 Arm band placed on. jd3 09:51 Noman Mckinley PA is PHCP. jmm 09:51 Adriane Denis MD is Attending Physician. jmm 09:57 Jane Orta, HERBER is Primary Nurse. kg 10:06 Bed in low position. Call light in reach. Side rails up X 1. kg 10:50 Foot Right 3 View In Process Unspecified. EDMS 11:46 No provider procedures requiring assistance completed. Patient did not have IV access kg during this emergency room visit. Administered Medications: No medications were administered Outcome: 11:20 Discharge ordered by . wang 11:46 Discharged to home ambulatory. kg 11:46 Condition: good 11:46 Discharge instructions given to patient, Instructed on discharge instructions, follow up and referral plans. Demonstrated understanding of instructions, follow-up care, medications, Prescriptions given X 1. 11:47 Patient left the ED. kg Signatures: Dispatcher [employer] EDMS Noman Mckinley PA PA jmm Rivera, Mary mr Davies, Jonathon RN RN Jane Hodge RN RN kg
--- NOTE | 2021-01-21 11:20 | EDPHYS ---
Physician Documentation [facility] Name: Aurea Ba Age: 45 yrs Sex: Female : 1975 Arrival Date: 01/21/2021 Time: 09:26 Bed 18 Private MD: Dgaoberto Burks V ED Physician Adriane Denis HPI: 01/21 10:25 This 45 yrs old Female presents to ER via Ambulatory with complaints of Foot jmm Pain. 10:25 The patient presents with pain. Onset: The symptoms/episode began/occurred gradually, 2 jmm week(s) ago. Modifying factors: The symptoms are alleviated by elevating leg, the symptoms are aggravated by weight bearing. Associated signs and symptoms: Pertinent negatives fever, swelling, warmth. This is a 45 year old female with a history of htn, hlp that presents to the ED with complaints of right foot pain for 2 weeks progressively worsening. Patient states having a history of fracture to that region. Denies known trauma but states she is very active at work. . 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 - Social history:: Smoking status: Patient reports the use of cigarette tobacco products, smokes one pack cigarettes per day. ROS: 10:25 Constitutional: Negative for fever, chills, and weight loss, Cardiovascular: Negative jmm for chest pain, palpitations, and edema, Respiratory: Negative for shortness of breath, cough, wheezing, and pleuritic chest pain. 10:25 MS/extremity: Positive for pain. 10:25 All other systems are negative. Exam: 10:25 Constitutional: This is a well developed, well nourished patient who is awake, alert, jmm and in no acute distress. Head/Face: atraumatic. Eyes: EOMI, no conjunctival erythema appreciated ENT: Moist Mucus Membranes Neck: Trachea midline, Supple Chest/axilla: Normal chest wall appearance and motion. Cardiovascular: Regular rate and rhythm. No edema appreciated Respiratory: Normal respirations, no respiratory distress appreciated Abdomen/GI: Non distended, soft Back: Normal ROM Skin: General appearance color normal 10:25 Musculoskeletal/extremity: mild pain on palpation of the right lateral foot, compartments are soft, full dorsalis pulse, NVI. 10:25 Skin: Appearance: Color: normal in color. 10:25 Neuro: Orientation: is normal, Mentation: is normal, Memory: is normal. 10:25 Psych: Behavior/mood is pleasant, cooperative. Vital Signs: 09:47 BP 146 / 89; Pulse 57; Resp 16 S; Temp 97.6(TE); Pulse Ox 95% on R/A; Weight 88.9 kg jd3 (R); Height 5 ft. 2 in. (157.48 cm) (R); Pain 8/10; 10:00 BP 138 / 96; Pulse 70; Resp 20; Pulse Ox 100% on R/A; kg 10:30 BP 131 / 109; Pulse 70; Resp 18; Pulse Ox 100% on R/A; kg 10:45 BP 123 / 77; Pulse 59; Resp 18; Pulse Ox 100% ; kg 11:00 BP 123 / 77; Pulse 59; Resp 20; Pulse Ox 100% on R/A; kg 11:38 BP 122 / 79; Pulse 61; Resp 20; Pulse Ox 100% on R/A; kg 09:47 Body Mass Index 35.85 (88.90 kg, 157.48 cm) jd3 MDM: 10:06 Patient medically screened. wang 11:19 Data reviewed: vital signs, nurses notes. Counseling: I had a detailed discussion with wang the patient and/or guardian regarding: the historical points, exam findings, and any diagnostic results supporting the discharge/admit diagnosis, radiology results, the need for outpatient follow up, to return to the emergency department if symptoms worsen or persist or if there are any questions or concerns that arise at home. ED course: Xray negative for an acute process. Patient advised to follow up with orthopedics for further evaluation. patient otherwise given strict return precautions. patient understood and agrees with the plan of care.. 01/21 10:50 Order name: Foot Right 3 View; Complete Time: 10:53 EDMS Administered Medications: No medications were administered Disposition: 01/21/21 11:20 Discharged to Home. Impression: Pain in right foot. - Condition is Stable. - Discharge Instructions: Musculoskeletal Pain. - Prescriptions for orphenadrine citrate 100 mg Oral Tablet Sustained Release - take 1 tablet by ORAL route 2 times per day As needed; 20 tablet. - Medication Reconciliation Form, Thank You Letter, Antibiotic Education, Prescription Opioid Use form. - Follow up: Private Physician; When: 2 - 3 days; Reason: Recheck today's complaints, Continuance of care, Re-evaluation by your physician. Signatures: Dispatcher [employer] EDMS Noman Mckinley PA PA jmm Davies, Jonathon RN RN jd3 Jane Orta RN RN kg Corrections: (The following items were deleted from the chart) 11:47 11:20 01/21/2021 11:20 Discharged to Home. Impression: Pain in right foot. Condition is kg Stable. Forms are Medication Reconciliation Form, Thank You Letter, Antibiotic Education, Prescription Opioid Use. Follow up: Private Physician; When: 2 - 3 days; Reason: Recheck today's complaints, Continuance of care, Re-evaluation by your physician. wang
[2021-01-21 11:54] VITALS: TEMP 97.6
[2021-01-21 11:55] VITALS: O2SAT 100
[2021-01-21 12:00] VITALS: BP 122/79
== END 2021-01-21 11:47 | disposition home or self-care (01) ==
LOC: ER 09:23
DX: M79.671 Pain in right foot (principal); I10 Essential (primary) hypertension; F17.210 Nicotine dependence, cigarettes, uncomplicated; Z88.5 Allergy status to narcotic agent; Z88.6 Allergy status to analgesic agent